=== PATIENT | female | born 1980 | race Caucasian/White ===

== ENCOUNTER 2017-03-01 09:51 | Emergency (ER) | payer BC, OTHER ==
--- NOTE | 2017-03-01 10:21 | ED.PDOC ---
History of Present Illness - General Chief Complaint: Respiratory Problem Time Seen by Provider: 03/01/17 10:15 Source: patient Exam Limitations: no limitations Additional Information: CC TO ME WAS BACK PAIN - History of Present Illness Initial Comments: PT C/O PAIN TO LOWER BACK PRIMARILY R. STARTED INITIALLY 2.5 WKS AGO. HAD STREP PHARYNGITIS TX'D WITH PCN AND ZPACK. DID NOT IMPROVED WENT BACK TO PCP DX'D WITH SINUSITIS PLACED ON STEROID NASAL SPRAY AND ANTIHISTAMINE. STILL DOES NOT FEEL BETTER. IS CONCERNED NOW WITH THE DEVELOPMENT OF THE BACK PAIN SHE MAY HAVE A KIDNEY INFECTION. Severity: moderate Improving Factors: nothing Worsening Factors: nothing Associated Symptoms: cough Allergies/Adverse Reactions: Allergies NO KNOWN ALLERGY Allergy (Verified 03/01/17 10:04) Home Medications: Ambulatory Orders Cefuroxime Axetil [Ceftin] 500 mg PO BID #20 tab 03/01/17 Cyclobenzaprine HCl [Flexeril] 10 mg PO TID PRN #15 tab 03/01/17 Escitalopram [Lexapro] 10 mg PO DAILY 03/01/17 Indomethacin 50 mg PO BID PRN #14 cap 03/01/17 Review of Systems - Review of Systems Constitutional: States: fever - FEVER INITIALLY WITH STREP BUT RESOLVED AFTER ABX. . 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 Denies: short of breath, wheezing Cardiology: Denies: chest pain, palpitations, syncope Gastrointestinal/Abdominal: Denies: abdominal pain, nausea, vomiting Genitourinary: Denies: dysuria, frequency, hematuria Musculoskeletal: States: back pain. Denies: joint pain, neck pain Skin: States: no symptoms reported Neurological: States: no symptoms reported Endocrine: States: no symptoms reported Hematologic/Lymphatic: States: no symptoms reported Past Medical History (General) - Patient Medical History Hx Stroke: No Hx Congestive Heart Failure: No Hx Diabetes: No - Vaccination History Hx Tetanus, Diphtheria Vaccination: No Hx Influenza Vaccination: No Hx Pneumococcal Vaccination: No - Social History Hx Tobacco Use: No Hx Depression: Yes - takes Lexapro - Female History Patient is a Female of Child Bearing Age (10 -59 yrs old): Yes Patient : No Family Medical History - Family History Mother Family History: No Known Living Status: Still Living Physical Exam - Physical Exam General Appearance: Comfortable, No apparent distress Eye Exam: bilateral normal Ears, Nose, Throat: normal ENT inspection, normal pharynx, other - MILD MUCOSAL SWELLING R NARE Neck: non-tender, full range of motion, supple Respiratory: lungs clear, normal breath sounds, no respiratory distress Cardiovascular/Chest: regular rate, rhythm, no murmur Gastrointestinal/Abdominal: normal bowel sounds, non tender - EXCEPT FOR VERY MILD SUPRAPUBIC TTP, soft, no organomegaly Back Exam: normal inspection, CVA tenderness (R) - MILD Extremity: normal range of motion, non-tender, normal inspection Neurologic: alert, normal mood/affect Skin Exam: normal color Lymphatic: no adenopathy Progress - Progress Progress: 03/01/17 11:46 FEELS BETTER AFTER TORADOL - EKG/XRAY/CT XRAY: chest - YULI (INTERP BY MAGDALENO) Departure - Departure Clinical Impression: Acute bronchitis Qualifiers: Bronchitis organism: unspecified organism Qualifier Code: (J20.9) Acute bronchitis, unspecified Lumbosacral strain Qualifiers: Encounter type: initial encounter Qualifier Code: (S39.012A) Strain of muscle, fascia and tendon of lower back, initial encounter ICD-10 Supporting Text: DDX PARTIALLY TREATED PNEUMONIA Time of Disposition: 11:48 Disposition: Discharge to Home or Self Care Condition: Good Departure Forms: ED Discharge - Pt. Copy, Patient Portal Self Enrollment Instructions: Acute Bronchitis Referrals: Nolberto Gallegos MD [Primary Care Provider] - 1-2 Weeks Prescriptions: Cefuroxime Axetil [Ceftin] 500 mg PO BID #20 tab Cyclobenzaprine HCl [Flexeril] 10 mg PO TID PRN #15 tab PRN Reason: Pain Indomethacin 50 mg PO BID PRN #14 cap PRN Reason: Pain Home Medications: Ambulatory Orders Cefuroxime Axetil [Ceftin] 500 mg PO BID #20 tab 03/01/17 Cyclobenzaprine HCl [Flexeril] 10 mg PO TID PRN #15 tab 03/01/17 Escitalopram [Lexapro] 10 mg PO DAILY 03/01/17 Indomethacin 50 mg PO BID PRN #14 cap 03/01/17
--- NOTE | 2017-03-01 10:29 | RAD ---
EXAM DESCRIPTION: Chest,2 Views CLINICAL HISTORY: persistent cough COMPARISON: None FINDINGS: Two-view chest x-ray shows cardiomediastinal silhouette and pulmonary vasculature to be within normal limits. The lungs are normally aerated and clear. Costophrenic angles are sharp. Osseous structures are unremarkable IMPRESSION: No radiographic evidence of acute cardiopulmonary disease. Electronically signed by: Victor Manuel Stone MD 03/01/2017 10:29 AM CDT
[2017-03-01] MEDS ORDERED: SODIUM CHLORIDE 0.9% 1000ML 1,000 ML IVS ONE (10:31)
[2017-03-01] MEDS ORDERED: KETOROLAC TROMETHAMINE INJ 30 MG/ML VIAL IV ONE (10:31)
[2017-03-01 12:21] VITALS: BP 108/72; TEMP 98; O2SAT 100
== END 2017-03-01 12:10 | disposition home or self-care (01) ==
LOC: ER 09:51
DX: S39.012A Strain of muscle, fascia and tendon of lower back, initial encounter (principal); J20.9 Acute bronchitis, unspecified; F32.9 Major depressive disorder, single episode, unspecified; Z79.899 Other long term (current) drug therapy; X58.XXXA Exposure to other specified factors, initial encounter; Y92.9 Unspecified place or not applicable
CPT/HCPCS: 71020; 81001; J1885; J7030